=== PATIENT | female | born 1945 | race Caucasian/White ===

== ENCOUNTER 2018-07-23 08:05 | Day surgery (SDC) | payer OTHER ==
[2018-07-22 09:15] VITALS: BMI 31.7
[2018-07-23] MEDS ORDERED: MIDAZOLAM HCL 2 MG/2 ML SINGLE DOSE VIAL ONE (10:28)
[2018-07-23] MEDS ORDERED: PROPOFOL 20 ML ONE (10:28)
[2018-07-23] MEDS ORDERED: ACETAMINOPHEN 1000 MG/100 ML VIAL (NON FORMULARY) IVPB ONE (10:29)
[2018-07-23] MEDS ORDERED: SUCCINYLCHOLINE CHLORIDE 200 MG/10 ML VIAL ONE (10:29)
[2018-07-23] MEDS ORDERED: CLINDAMYCIN 600 MG PREMIX BAG IVPB ONE (10:30)
[2018-07-23] MEDS ORDERED: DEXTROSE 5%-0.45% SALINE 1,000 ML IV SCH (10:30)
[2018-07-23] MEDS ORDERED: CLINDAMYCIN PHOSPHATE 600 MG/4 ML VIAL ONE ×2 (10:41→10:49)
[2018-07-23] MEDS ORDERED: IBUPROFEN 800 MG/8 ML IJ IVPB SCH (10:45)
[2018-07-23] MEDS ORDERED: DEXAMETHASONE SOD PHOSPHATE 4 MG/1 ML VIAL ONE (10:49)
[2018-07-23] MEDS ORDERED: LIDOCAINE HCL/PF 2% SDV 5ML VIAL ONE (10:49)
[2018-07-23] MEDS ORDERED: KETOROLAC TROMETHAMINE 30 MG/1 ML VIAL ONE (10:49)
[2018-07-23] MEDS ORDERED: ONDANSETRON 4 MG/2 ML VIAL IVPUSH PRN (10:52)
[2018-07-23] MEDS ORDERED: oxyCODONE HCL 5 MG TABLET PO PRN (10:52)
[2018-07-23] MEDS ORDERED: LACTATED RINGERS SOLUTION 1,000 ML IV SCH (11:00)
--- NOTE | 2018-07-23 11:23 | HP ---
[facility] - Chief Complaint Chief Complaint: stress incontinence History of Present Illness: stress incontinence, confirmed on urodynamics. here for sling placement History Source: Patient Limitations to Obtaining History: No Limitations - Past Medical History Allergies/Adverse Reactions: Allergies Allergy/AdvReac Type Severity Reaction Status Date / Time ciprofloxacin [From Cipro] Allergy Severe Verified 07/23/18 08:48 [employer]: No: Alzheimer's, CVA, Dementia, Migraine, Multiple Sclerosis, Peripheral Neuropathy, Parkinson's, Seizure, Syncope, TIA, Vertigo, Other Pulmonary: No: Asthma, Bronchitis, Cancer, COPD, O2 Dependent, Pneumonia, Previously Intubated, Pulmonary Embolus, Pulmonary Fibrosis, Sleep Apnea, Other Gastrointestinal: No: Ascites, Cancer, Constipation, Crohn's Disease, Diverticulitis, Diverticulosis, Esophageal Varices, Gastritis, GERD, GI Bleed, Hemorrhoids, Hiatal Hernia, Inflamatory Bowel Disease, Irritable Bowel Disease, Pancreatitis, Peptic Ulcer Disease, Ulcerative Colitis, Other Hepatobiliary: No: Cirrhosis, Cholelithiasis, Cholecystitis, Choledocholithiasis , Hepatitis A, Hepatitis B, Hepatitis C, Other - Current Medications Current Medications: Home Medications Medication Instructions Recorded Aspirin [Aspirin EC] 81 mg PO HS 07/22/18 Calcium 500-Vit D3 400 Tablet 1 tab PO HS 07/22/18 Docusate Sodium [Colace -] 100 mg PO PRN 07/22/18 Glucosa Farris 2Kcl/Chondroitin Farris 1 tab PO BID 07/22/18 [Glucosamine & Chondroitin Cap] Ibuprofen [Motrin -] 400 mg PO PRN 07/22/18 Levothyroxine Sodium [Synthroid] 88 mcg PO DAILY 07/22/18 Losartan-Hctz 100-12.5 mg Tab 1 tab PO DAILY 07/22/18 Rosuvastatin Calcium [Crestor] 10 mg PO HS 07/22/18 Tolterodine Tartrate [Detrol LA] 1 tab PO DAILY 07/22/18 Satellite Physical Exam - Physical Examination Vital Signs: Vital Signs Period Temp Pulse Resp BP Sys/[place] Pulse Ox Last 24 Hr 98 F 73 18 139/70 100 General Appearance: Well Nourished, Well Developed ENT: Clear, No Discharge, No masses Lung: Clear to auscultation Heart: Regular rate & rhythm, Normal S1, Normal S2 Abdomen: Soft, No tenderness, No CVA Extremities: No edema, No tenderness/swelling Satellite Impression/Plan - Impression/Plan Impression: stress incontinence. Operative Procedure: suburethral sling and cystoscopy Date to be Performed: 07/23/18
[2018-07-23] MEDS ORDERED: ACETAMINOPHEN INJECTION 100 ML IVPB ONE (11:55)
--- NOTE | 2018-07-23 12:49 | OP ---
DATE OF OPERATION: 07/23/2018 SURGEON: Yoni Yusuf MD ANESTHESIOLOGIST: Ella Galaviz MD ANESTHESIA: General anesthesia. PREOPERATIVE DIAGNOSIS: Stress urinary incontinence. POSTOPERATIVE DIAGNOSIS: Stress urinary incontinence and bladder cancer. PROCEDURE: Suburethral sling placement, cystoscopy, bladder biopsy, and fulguration of tumor. SPECIMEN: Bladder tumor. ESTIMATED BLOOD LOSS: 25 mL. DRAINS: Timmons catheter. PREOPERATIVE INDICATIONS: The patient is 73-year-old female who comes in with stress urinary incontinence. 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 Stress incontinence was confirmed on urodynamic. She comes today for suburethral sling placement. OPERATION: The patient was brought to the OR, placed on the table in the supine position, given general anesthesia and IV antibiotics, and placed in the modified lithotomy position. The groin was prepped and draped sterilely. Time-out was performed. Timmons catheter was placed. The vaginal mucosa was injected over the area of the portion of the urethra with vasopressin in a lateral fashion. An incision was then made over the mid portion of the urethra, and the periurethral tissues were dissected sharply off of the vaginal mucosa. The bladder was then emptied. A suburethral sling was placed using trocars. The mini-sling was used under fingertip control through the vaginal incision towards the obturator canal. This was done bilaterally. Cystoscopy was then performed. There was no evidence of perforation of the bladder. Both ureteral orifices were seen with clear efflux. However, a small polypoid bladder tumor was seen just distal to the left ureteral orifice close to the bladder neck. Using a Pradeep Biopsy Forceps, the polyp was removed and sent for pathology. The base was then fulgurated with a Bovie electrode. No other tumors were seen throughout the bladder. The was removed. The Timmons was placed. The sling was appropriately tightened until flat without tension over the mid portion of the urethra. The excess tightening suture was removed. The incision was then closed with 2-0 Vicryl suture in 2 layers. Good hemostasis was maintained. There was no evidence of sling buttonholing through the vaginal mucosa. Vaginal packing was placed and left in place. The patient was woken up. YONI YUSUF M.D. [id number]
[2018-07-23 13:48] VITALS: BP 136/69; PULSE 79; TEMP 98.2
--- NOTE | 2018-07-24 15:01 | PATH ---
Surgical Pathology Report Patient Name: ANGELINA NAIR [facility]. Rec. #: [id number] /Age/Gender: 1945 (Age: 73) / F Account: [id number] Location: U SURGICAL Taken: 07/23/2018 Received: 07/23/2018 Reported: 07/24/2018 Physicians: Yoni Yusuf M.D. Specimen(s) Received BLADDER BIOPSY Clinical History Stress urinary incontinence Final Diagnosis BLADDER, BIOPSY: LOW GRADE PAPILLARY UROTHELIAL CARCINOMA, NON-INVASIVE. NO MUSCULARIS PROPRIA IDENTIFIED. NO FLAT CARCINOMA IN SITU (CIS) IDENTIFIED. Comment: Office of Dr. Yusuf informed that significant findings will be faxed ([place]). Electronically Signed Mirian Baeza M.D. Gross Description Received in formalin labeled "bladder biopsy," is a 0.5 x 0.5 x 0.1 cm aggregate of siddiqi soft tissue fragments. The formalin is filtered and the specimen is entirely submitted in one cassette. /07/23/2018 [facility]07/23/2018
== END 2018-07-23 14:00 | disposition home or self-care (01) ==
LOC: JASU-SURG 08:05
PROVIDERS: ATTEND Urology
PROC: 0TBB8ZX Excision of Bladder, Via Natural or Artificial Opening Endoscopic, Diagnostic (ICD-10-PCS; 2018-07-23)
PROC: 0TSD0ZZ Reposition Urethra, Open Approach (ICD-10-PCS; principal; 2018-07-23 09:00)
DX: N39.3 Stress incontinence (female) (male) (principal); C67.9 Malignant neoplasm of bladder, unspecified
CPT/HCPCS: 88305-TC; 94760; J0131

== ENCOUNTER → 2022-08-03 | Day surgery (SDC) | payer OTHER ==
[2022-07-31 14:48] VITALS: BMI 32.2
[~2022-08-03] MED LIST: ACETAMINOPHEN 1000 MG/100 ML BAG IVPB ONE; ACETAMINOPHEN INJECTION 100 ML IVPB ONE; DEXAMETHASONE SOD PHOSPHATE 4 MG/1 ML VIAL ONE; DEXTROSE 5%-0.45% SALINE 1,000 ML IV SCH; IBUPROFEN 800 MG/8 ML IJ IVPB ONE; IBUPROFEN 800 MG/8 ML IJ IVPB SCH; LACTATED RINGERS SOLUTION 1,000 ML IV SCH; ONDANSETRON 4 MG/2 ML VIAL IVPUSH PRN; PROPOFOL 20 ML ONE; ceFAZolin SODIUM 1 GM VIAL IVPB ONE; ceFAZolin SODIUM 1 GM VIAL ONE; oxyCODONE HCL 5 MG TABLET PO PRN
[2022-08-03 10:02] VITALS: TEMP 97.1
[2022-08-03 11:08] VITALS: BP 147/66; PULSE 70; RESP 18
== END | disposition home or self-care (01) ==
LOC: JASU-SURG 04:51
PROVIDERS: ATTEND Urology
PROC: 0T5B8ZZ Destruction of Bladder, Via Natural or Artificial Opening Endoscopic (ICD-10-PCS; principal; 2022-08-03 07:30)
DX: C67.9 Malignant neoplasm of bladder, unspecified (principal)
CPT/HCPCS: 88307-TC; 94760